=== PATIENT | male | born 1970 | race Hispanic/Latino ===

== ENCOUNTER 2020-11-26 22:04 | Emergency (ER) | payer BC, OTHER ==
[~2020-11-26] VITALS: Ht 172.7 cm; Wt 124.3 kg
[~2020-11-26 22:04] MED LIST: ALPR0.255 PO; BUPR200T3 PO; LOSA50TA64 PO; SIMV-43 PO
[2020-11-26] MEDS ORDERED: KETOROLAC 30MG VIAL (30MG/ML) IV SCH (22:30)
[2020-11-26] MEDS ORDERED: ONDANSETRON HCL 4 MG/2 ML VIAL IVP SCH (22:30)
[2020-11-26 22:47] VITALS: BP 158/105
[2020-11-26] MEDS ORDERED: LORAZEPAM 2 MG/ML 1 ML VIAL IVP ONE (23:00)
[2020-11-26] MEDS: SODIUM CHLORIDE 0.9% 1000ML 1,000 ML IV SCH (23:18)
[2020-11-26 23:42] LABS: APPEARANCE,URINE Clear (CLEAR); BILIRUBIN,URINE Negative (NEGATIVE); COLOR,URINE Yellow (YELLOW); GLUCOSE, URINE (UA) Negative (NEGATIVE); KETONES,URINE Negative (NEGATIVE); LEUKOCYTE ESTERASE ,URINE Negative (NEGATIVE); NITRATE,URINE Negative (NEGATIVE); OCCULT BLOOD,URINE Trace (NEGATIVE); PROTEIN,URINE Negative (NEGATIVE); UROBILINOGEN,URINE 0.2 mg/dL (0.2-1.0)
[2020-11-27 00:05] LABS: BACTERIA,URINE None Seen /HPF (None Seen); WBC,URINE None Seen /HPF (0-1)
[2020-11-27 00:18] LABS: BAND NEUTROPHILS % (MANUAL) 3 % (0-2); EOSINOPHILS % (MANUAL) 2 % (1-6); LYMPHOCYTES % (MANUAL) 7 % (22-44); MAN.DIFF COMMENT-IMPRESSION MANUAL DIFFERENTIAL; MONOCYTES % (MANUAL) 4 % (2-9); SEGMENTED NEUTROPHILS % 84 % (40-70)
[2020-11-27 00:19] LABS: PLATELET MORPHOLOGY COMMENT ADEQUATE
[2020-11-27] MEDS: SODIUM CHLORIDE 0.9% 1000ML 1,000 ML IV SCH ×3 (00:34→01:06)
[2020-11-27 00:41] LABS: CREATININE 1.7 mg/dL (0.5-1.5); POTASSIUM 4.2 mmol/L (3.5-5.1)
[2020-11-27 00:50] LABS: ALBUMIN 3.8 g/dL (3.5-5.0); BILIRUBIN,TOTAL 0.4 mg/dL (0.2-1.0); CRP QUANTITATIVE 17.4 mg/L (0.00-9.0); HEMATOCRIT 44.9 % (42-54); MEAN CORPUSCULAR HEMOGLOBIN 29.3 pg (27.0-33.0); MEAN CORPUSCULAR HGB CONC 33.6 g/dL (32.0-36.0); MEAN CORPUSCULAR VOLUME 87.2 fL (79-99); PLATELET COUNT (AUTO) 253 K/uL (130-400); RED BLOOD CELL COUNT(AUTO) 5.15 MIL/uL (4.50-6.20); RED CELL DISTRIBUTION WIDTH 12.8 % (11.0-15.5); WHITE BLOOD COUNT (AUTO) 15.4 K/uL (4.8-10.8)
[2020-11-27 01:00] VITALS: BP 148/87
[2020-11-27 02:00] VITALS: BP_SYST 148; BP_SYST 152; BP_DIAS 87; BP_DIAS 90
[2020-11-27 03:00] VITALS: BP 138/93
[2020-11-27] MEDS ORDERED: DICY20TA2 PO (03:52)
[2020-11-27] MEDS ORDERED: MELO7.5T12 PO (03:52)
[2020-11-27] MEDS ORDERED: ONDA4TAB10 PO (03:52)
[2020-11-27] MEDS ORDERED: METO-296 PO (03:52)
[2020-11-27] MEDS ORDERED: TAMS-1 PO (03:52)
[2020-11-27] MEDS ORDERED: TAMSULOSIN HCL 0.4 MG CAP.ER.24H PO SCH (04:00)
[2020-11-27] MEDS ORDERED: DICYCLOMINE HCL 20 MG TAB PO SCH (04:00)
== END 2020-11-27 04:12 | disposition home or self-care (01) ==
LOC: EDH 22:04
DX: N23 Unspecified renal colic (principal); N20.1 Calculus of ureter; I10 Essential (primary) hypertension; I25.10 Atherosclerotic heart disease of native coronary artery without angina pectoris; E11.9 Type 2 diabetes mellitus without complications; E66.9 Obesity, unspecified; E78.5 Hyperlipidemia, unspecified; F32.9 Major depressive disorder, single episode, unspecified; Z88.0 Allergy status to penicillin; Z79.899 Other long term (current) drug therapy
CPT/HCPCS: 36415; 74176; 80053; 81001; 83690; 84484; 85025; 86140; 93005; 96374; 96375; 99285; J1885; J2060; J2405; J7030; 96361

== ENCOUNTER 2022-12-23 07:05 | Day surgery (SDC) | payer BC ==
[2022-12-21 12:33] LABS: BASOPHILS % (AUTO) 0.8 % (0.0-5.0); EOSINOPHILS % (AUTO) 3.1 % (0.0-8.0); HEMATOCRIT 45.2 % (42-54); LYMPHOCYTES % (AUTO) 22.1 % (21.0-51.0); MEAN CORPUSCULAR HEMOGLOBIN 28.4 pg (27.0-33.0); MEAN CORPUSCULAR HGB CONC 32.7 g/dL (32.0-36.0); MEAN CORPUSCULAR VOLUME 86.8 fL (79-99); MONOCYTES % (AUTO) 11.2 % (3.0-13.0); NEUTROPHILS % (AUTO) 62.7 % (40.0-77.0); PLATELET COUNT (AUTO) 254 K/uL (130-400); RED BLOOD CELL COUNT(AUTO) 5.21 MIL/uL (4.50-6.20); RED CELL DISTRIBUTION WIDTH 13.4 % (11.0-15.5); WHITE BLOOD COUNT (AUTO) 7.7 K/uL (4.8-10.8)
[2022-12-21 12:43] VITALS: BP 178/98
[2022-12-21 12:44] LABS: CREATININE 1.3 mg/dL (0.5-1.5); POTASSIUM 4.3 mmol/L (3.5-5.1)
[2022-12-23] VITALS (16 sets, daily range): BP systolic 119–177; BP diastolic 77–102
[~2022-12-23] VITALS: Ht 172.7 cm; Wt 123.0 kg
[~2022-12-23 07:05] MED LIST changes: -BUPR200T3 PO; +BUPR200T8 PO; +LOSA100T59 PO; -LOSA50TA64 PO; -SIMV-43 PO
[2022-12-23] MEDS ORDERED: GENTAMICIN 80 MG/NS 100 ML PB 100 ML IV ONE (07:17)
[2022-12-23] MEDS ORDERED: LACTATED RINGERS 1000ML 1,000 ML IV ONE (07:17)
[2022-12-23] MEDS ORDERED: SULF1TAB42 PO (07:58)
[2022-12-23] MEDS ORDERED: MIDAZOLAM HCL 1 MG/ML 2ML VIAL ONE ×2 (10:18→11:20)
[2022-12-23] MEDS ORDERED: PROPOFOL 10 MG/ML 20ML VIAL IV ONE ×2 (11:20→11:43)
[2022-12-23] MEDS ORDERED: FENTANYL CITRATE PF 50 MCG/1 ML 2ML VIAL ONE (11:21)
[2022-12-23] MEDS ORDERED: LIDOCAINE HCL 2% JELLY 5 ML TP ONE (11:32)
== END 2022-12-23 13:30 | disposition home or self-care (01) ==
LOC: DAH 07:05
PROVIDERS: ATTEND Urology
DX: R97.20 Elevated prostate specific antigen [PSA] (principal); Z20.822 Contact with and (suspected) exposure to COVID-19; C61 Malignant neoplasm of prostate; N40.0 Benign prostatic hyperplasia without lower urinary tract symptoms; I25.10 Atherosclerotic heart disease of native coronary artery without angina pectoris; I10 Essential (primary) hypertension; E11.9 Type 2 diabetes mellitus without complications; J45.909 Unspecified asthma, uncomplicated; G47.33 Obstructive sleep apnea (adult) (pediatric); F32.A Depression, unspecified; E66.9 Obesity, unspecified; Z68.41 Body mass index [BMI] 40.0-44.9, adult
CPT/HCPCS: 80048; 85025; 87426; 36415; 55700; 76942; 76872; A6260; A4663; J7120; J3010; J2250 ×2; J2704; J1580; A4215 ×2; A4649; A4223; A4222; A4221; A4600 ×2

== ENCOUNTER → 2023-07-26 | Outpatient (CLI) | payer BC ==
[~2023-07-26] MED LIST changes: +SULF1TAB42 PO
== END | disposition home or self-care (01) ==
LOC: RAH 13:37
PROVIDERS: ATTEND Family Medicine
DX: N20.0 Calculus of kidney (principal); N18.30 Chronic kidney disease, stage 3 unspecified
CPT/HCPCS: 76770